=== PATIENT | female | born 1995 | race American Indian/Alaskan Native ===

== ENCOUNTER 2018-12-27 23:39 | Outpatient (CLI) | payer MEDICAID ==
[2018-12-28 01:24] VITALS: BP 119/69
== END 2018-12-28 01:38 | disposition home or self-care (01) ==
LOC: TRG 23:39
PROVIDERS: ATTEND Obstetrics & Gynecology
DX: O9A.213 Injury, poisoning and certain other consequences of external causes complicating pregnancy, third trimester (principal); O26.893 Other specified pregnancy related conditions, third trimester; R10.819 Abdominal tenderness, unspecified site; Z3A.37 37 weeks gestation of pregnancy; W19.XXXA Unspecified fall, initial encounter; Y93.89 Activity, other specified; Y92.098 Other place in other non-institutional residence as the place of occurrence of the external cause; Y99.8 Other external cause status
CPT/HCPCS: 59025

== ENCOUNTER 2019-01-16 13:56 | Inpatient (IN) | payer MEDICAID ==
[2019-01-16 17:00] LABS: Basophils # (Auto) 0.1 K/mm3 (0.0-0.1); Basophils % (Auto) 0.5 % (0.0-1.8); Eosinophils # (Auto) 0.1 K/mm3 (0.0-0.4); Eosinophils % (Auto) 0.5 % (0.0-4.3); Hemoglobin 11.4 gm/dl (10.1-14.3); Lymphocytes # (Auto) 1.6 K/mm3 (1.2-5.4); Lymphocytes % (Auto) 13.4 % (13.4-35.0); Mean Corpuscular HGB Conc 33 % (30-34); Mean Corpuscular Volume 81 fl (79-97); Monocytes # (Auto) 0.7 K/mm3 (0.0-0.8); Monocytes % (Auto) 6.1 % (0.0-7.3); Platelet Count 229 K/mm3 (140-440); Red Blood Count 4.34 M/mm3 (3.65-5.03); Red Cell Distribution Width 14.5 % (13.2-15.2)
--- NOTE | 2019-01-16 17:04 | History and Physical Report ---
History of Present Illness Date of examination: 01/16/19 Date of admission: 01/16/19 13:56 Chief complaint: IOL secondary to morbid obesity History of present illness: 23 yo, @ 40 wk gestation. Initiated care with [facility] at 7 wks gestation. Care was co-managed by [facility]. She presents to [facility] for IOL secondary to MO. She reports + FM. Denies any VB or LOF. Her has been complicated by chlamydia, with a negative JENNIFER. Labs: A+, antibody negative; Rubella immune; VDRL non-reactive; HBsAg negative; HIV negative; GC/Chlamydia negative (07/27/18); HSVII negative; Trich negative; early 1 hr gtt - 105; 28 wk 1 hr gtt - 107; GBS negative. Past History Past Medical History: other (obesity ( BMI: 51.17) Past Surgical History: no surgical history [employer] REFINISHER History: abnormal PAP smear (05/20/18: [facility]), chlamydia Family/Genetic History: diabetes Social history: single, full code. denies: smoking, alcohol abuse, prescription drug abuse, IV drug use - Obstetrical History Expected Date of Delivery: 01/16/19 Actual Gestation: 40 Week(s) 0 Day(s) : 1 Para: 0 Hx # Term Pregnancies: 0 Number of Pregnancies: 0 Spontaneous Abortions: 0 Induced : 0 Number of Living Children: 0 Medications and Allergies Allergies Allergy/AdvReac Type Severity Reaction Status Date / Time No Known Allergies Allergy Verified 12/28/18 00:51 Review of Systems All systems: negative - Vital Signs Vital signs: Vital Signs Pulse BP 90 113/61 01/16/19 14:29 01/16/19 14:29 Temp Pulse Resp BP Pulse Ox 98.9 F 90 16 113/61 01/16/19 15:49 01/16/19 15:49 01/16/19 15:49 01/16/19 15:49 - Physical Exam Breasts: Positive: deferred Cardiovascular: Regular rate Lungs: Positive: Normal air movement Abdomen: Positive: other (gravid) Genitourinary (Female): Positive: normal external genitalia, normal perenium Vagina: Positive: normal moisture Uterus: Positive: other (S>D) - Obstetrical FHR: category 1 Uterine Contraction Monitor Mode: External Cervical Dilatation: 0 Cervical Effacement Percentage: 50 station: -3 Uterine Contraction Pattern: Irregular Uterine Tone Measurement Phase: Resting Uterine Contraction Intensity: Mild Results All other labs normal. Assessment and Plan - Patient Problems (1) 40 weeks gestation of Current Visit: Yes Status: Acute Plan to address problem: Admit to L & D Cervidil x 12 hrs as tolerated Pain medications as desired Anticipate (2) Morbid obesity with BMI of 50.0-59.9, adult Current Visit: Yes Status: Acute (3) Encounter for induction of labor Current Visit: Yes Status: Acute
[2019-01-16] MEDS ORDERED: BRETHINE SUB-Q PRN (17:11)
[2019-01-16] MEDS ORDERED: BRETHINE IVP PRN (17:11)
[2019-01-16] MEDS ORDERED: CERVIDIL VG ONE (17:11)
[2019-01-16] MEDS ORDERED: XYLOCAINE 2% INFILTRATI ONE (17:11)
[2019-01-16] MEDS ORDERED: MINERAL OIL PO PRN (17:11)
[2019-01-16] MEDS ORDERED: STADOL IV PRN (17:11)
[2019-01-16] MEDS ORDERED: ZOFRAN IV PRN (17:11)
[2019-01-16] MEDS ORDERED: SUBLIMAZE IV PRN (17:11)
[2019-01-16 17:27] LABS: Hematocrit 34.9 % (30.3-42.9); Hemoglobin 11.4 gm/dl (10.1-14.3); Mean Corpuscular HGB Conc 33 % (30-34); Mean Corpuscular Volume 81 fl (79-97); Platelet Count 222 K/mm3 (140-440); Red Blood Count 4.29 M/mm3 (3.65-5.03); Red Cell Distribution Width 13.9 % (13.2-15.2)
[2019-01-16] MEDS ORDERED: PITOCin/NS 20 UNIT/1000ML DRIP 20 UNITS/1,000 ML BAG IV SCH (18:00)
[2019-01-16] MEDS: LACTATED RINGERS 1,000 ML IV SCH (18:52)
[2019-01-17] MEDS: LACTATED RINGERS 1,000 ML IV SCH (02:25)
--- NOTE | 2019-01-17 10:04 | Progress Note ---
Assessment and Plan A: IUP @ 40 1/7 Weeks Category I Tracing Morbid Maternal Obesity GBS Negative P: Repeat Cervidil x 12 hours Subjective - Subjective Date of service: 01/17/19 Patient reports: movement normal, contractions Objective - Vital Signs Vital Signs: Vital Signs - 12hr 01/16/19 01/16/19 01/17/19 23:41 23:42 03:38 Temperature 98.0 F Pulse Rate 90 90 Respiratory 16 16 Rate Blood Pressure 130/62 Blood Pressure 130/62 [Right] 01/17/19 01/17/19 01/17/19 03:42 03:45 09:19 Temperature 98.0 F Pulse Rate 82 82 81 Respiratory 15 Rate Blood Pressure 144/65 105/57 Blood Pressure 144/65 [Right] - Exam Breasts: normal Cardiovascular: Regular rate Lungs: Clear to auscultation, Normal air movement Abdomen: Present: normal appearance, soft, normal bowel sounds Uterus: Present: normal, firm, fundal height above umbilicus FHR: category 1 Uterine Contraction Monitor Mode: External Cervical Dilatation: 0 Uterine Contraction Pattern: Irregular Uterine Tone Measurement Phase: Resting Uterine Contraction Intensity: Mild Extremities: normal - Labs Labs: Abnormal Labs 01/16/19 01/16/19 16:37 Unknown WBC 11.9 H 12.1 H MCH 26 L 27 L Seg Neutrophils % 79.5 H Seg Neutrophils # 9.5 H Laboratory Results - last 24 hr 01/16/19 01/16/19 01/16/19 16:37 16:37 Unknown WBC 11.9 H 12.1 H RBC 4.34 4.29 Hgb 11.4 11.4 Hct 35.0 34.9 MCV 81 81 MCH 26 L 27 L MCHC 33 33 RDW 14.5 13.9 Plt Count 229 222 Lymph % (Auto) 13.4 [place] % (Auto) 6.1 Eos % (Auto) 0.5 Baso % (Auto) 0.5 Lymph # 1.6 [place] # 0.7 Eos # 0.1 Baso # 0.1 Seg Neutrophils % 79.5 H Seg Neutrophils # 9.5 H Blood Type A POSITIVE Antibody Screen Negative
[2019-01-17] MEDS ORDERED: CERVIDIL VG PRN (10:30)
[2019-01-17] MEDS ORDERED: CERVIDIL VG ONE (11:08)
[2019-01-17] MEDS ORDERED: NORCO 5/325 PO PRN (14:03)
[2019-01-17] MEDS ORDERED: MILK OF MAGNESIA PO PRN (14:03)
[2019-01-17] MEDS ORDERED: BENADRYL PO PRN (14:03)
[2019-01-17] MEDS ORDERED: MINERAL OIL PO PRN (14:30)
[2019-01-17] MEDS ORDERED: PITOCin/NS 20 UNIT/1000ML DRIP 20 UNITS/1,000 ML BAG IV SCH (15:00)
[2019-01-17] MEDS ORDERED: IBUPROFEN PO SCH (15:00)
[2019-01-17] MEDS ORDERED: SODIUM CHLORIDE FLUSH SYRINGE 10 ML IV NR (15:00)
[2019-01-17] MEDS: PITOCin/NS 30 UNIT/500ML 30 UNITS/500 ML BAG IV SCH (23:56)
--- NOTE | 2019-01-17 23:57 | Progress Note ---
Assessment and Plan A: IUP @ 40 1/7 Weeks Category I Tracing Morbid Maternal Obesity GBS Negative P: Remove Cervidil Cook's Cervical Ripening Balloon Placed Low-Dose Pitocin Subjective - Subjective Date of service: 01/17/19 Patient reports: movement normal, contractions Objective - Vital Signs Vital Signs: Vital Signs - 12hr 01/17/19 16:22 Temperature 98.2 F Pulse Rate 84 Respiratory 16 Rate Blood Pressure 117/57 Blood Pressure 117/57 [Right] - Exam Breasts: normal Cardiovascular: Regular rate Lungs: Clear to auscultation Abdomen: Present: normal appearance, soft Uterus: Present: normal, firm, fundal height above umbilicus FHR: category 1 Uterine Contraction Monitor Mode: External Cervical Dilatation: 1 (intact, Vtx) Cervical Effacement Percentage: 30 station: 3 Uterine Contraction Pattern: Irregular Uterine Tone Measurement Phase: Resting Uterine Contraction Intensity: Mild Extremities: normal - Labs Labs: Abnormal Labs 01/16/19 01/16/19 16:37 Unknown WBC 11.9 H 12.1 H MCH 26 L 27 L Seg Neutrophils % 79.5 H Seg Neutrophils # 9.5 H Laboratory Results - last 24 hr 01/16/19 16:37 RPR Nonreactive
[2019-01-18] MEDS ORDERED: XYLOCAINE 2% INFILTRATI ONE (03:15)
[2019-01-18] MEDS ORDERED: XYLOCAINE MPF 2% ONE (03:15)
[2019-01-18] MEDS ORDERED: NARCAN 2 MG/2 ML IV PRN (03:55)
--- NOTE | 2019-01-18 03:55 | Anesthesia Consultation ---
Anesthesia Consult and Med Hx Date of service: 01/18/19 - Airway Anesthetic Teeth Evaluation: Good ROM Head & Neck: Adequate Mental/Hyoid Distance: Adequate Mallampati Class: Class II Intubation Access Assessment: Probably Good - Pulmonary Exam CTA: Yes - Cardiac Exam Cardiac Exam: RRR - Pre-Operative Health Status ASA Pre-Surgery Classification: ASA3 Proposed Anesthetic Plan: Epidural - Pulmonary Hx Asthma: No COPD: No Hx Pneumonia: No - Cardiovascular System Hx Hypertension: No - Central Nervous System Hx Seizures: No Hx Psychiatric Problems: No - Endocrine Hx Renal Disease: No Hx End Stage Renal Disease: No Hx Hypothyroidism: No Hx Hyperthyroidism: No - Hematic Hx Anemia: No Hx Sickle Cell Disease: No - Other Systems Hx Alcohol Use: No Hx Obesity: Yes
[2019-01-18] MEDS: fentaNYL-BUPIV 2 MCG/ML-0.125% 200 MCG/100 ML BAG EPIDURAL SCH ×2 (09:07→17:21)
[2019-01-18] MEDS ORDERED: PRENATAL VITAMIN PO SCH (10:00)
--- NOTE | 2019-01-18 10:31 | Progress Note ---
Assessment and Plan A: Term IUP 40w 2d Morbid obesity Category 1 tracing Day #2 induction Pitocin 22mu Comfortable with epidural AROM 01/18/10 @09:42; copious amt clear fluid IUPC inserted in gentle fashion; Pt tolerated well P: Routine labor orders Continue pitocin Augmentation Desired MVUs 275-300 Anticipate Subjective - Subjective Date of service: 01/18/19 (09:42) Principal diagnosis: Term IUP, IOL, Morbid obesity Patient reports: movement normal, contractions, no loss of fluid, no vaginal bleeding Objective - Vital Signs Vital Signs: Vital Signs - 12hr 01/17/19 01/18/19 01/18/19 23:55 00:44 01:16 Pulse Rate 76 75 Respiratory 20 Rate Blood Pressure 159/91 148/78 O2 Sat by Pulse Oximetry 01/18/19 01/18/19 01/18/19 01:44 03:24 03:45 Pulse Rate 74 100 H 77 Respiratory Rate Blood Pressure 142/73 106/52 112/54 O2 Sat by Pulse Oximetry 01/18/19 01/18/19 01/18/19 04:15 04:43 05:14 Pulse Rate 81 75 84 Respiratory Rate Blood Pressure 119/53 125/60 112/55 O2 Sat by Pulse Oximetry 01/18/19 01/18/19 01/18/19 05:44 06:14 06:45 Pulse Rate 83 81 74 Respiratory Rate Blood Pressure 134/64 117/58 136/57 O2 Sat by Pulse Oximetry 01/18/19 01/18/19 01/18/19 07:14 07:29 07:34 Pulse Rate 85 92 H 86 Respiratory Rate Blood Pressure 134/59 O2 Sat by Pulse 100 100 Oximetry 01/18/19 01/18/19 01/18/19 07:39 07:44 07:47 Pulse Rate 85 94 H 88 Respiratory Rate Blood Pressure 122/63 118/58 O2 Sat by Pulse 98 98 Oximetry 01/18/19 01/18/19 01/18/19 07:49 07:50 07:53 Pulse Rate 96 H 100 H 107 H Respiratory Rate Blood Pressure 126/58 126/57 O2 Sat by Pulse 100 Oximetry 01/18/19 01/18/19 01/18/19 07:54 07:56 07:59 Pulse Rate 98 H 103 H 108 H Respiratory Rate Blood Pressure 119/57 123/58 O2 Sat by Pulse 98 99 Oximetry 01/18/19 01/18/19 01/18/19 08:02 08:04 08:05 Pulse Rate 94 H 101 H 103 H Respiratory Rate Blood Pressure 134/58 133/64 O2 Sat by Pulse 98 Oximetry 01/18/19 01/18/19 01/18/19 08:08 08:09 08:11 Pulse Rate 108 H 104 H 100 H Respiratory Rate Blood Pressure 127/57 128/58 O2 Sat by Pulse 98 Oximetry 01/18/19 01/18/19 01/18/19 08:14 08:19 08:24 Pulse Rate 90 79 92 H Respiratory Rate Blood Pressure 111/56 O2 Sat by Pulse 99 98 99 Oximetry 01/18/19 01/18/19 01/18/19 08:29 08:34 08:39 Pulse Rate 90 83 89 Respiratory Rate Blood Pressure O2 Sat by Pulse 100 99 99 Oximetry 01/18/19 01/18/19 01/18/19 08:44 08:46 08:49 Pulse Rate 95 H 88 102 H Respiratory Rate Blood Pressure 119/71 O2 Sat by Pulse 98 100 Oximetry 01/18/19 01/18/19 01/18/19 08:54 08:59 09:04 Pulse Rate 97 H 74 77 Respiratory Rate Blood Pressure O2 Sat by Pulse 100 100 100 Oximetry 01/18/19 01/18/19 01/18/19 09:09 09:14 09:15 Pulse Rate 78 87 101 H Respiratory Rate Blood Pressure O2 Sat by Pulse 100 100 92 Oximetry 01/18/19 01/18/19 01/18/19 09:16 09:19 09:24 Pulse Rate 90 70 76 Respiratory Rate Blood Pressure 126/70 O2 Sat by Pulse 100 100 Oximetry 01/18/19 01/18/19 01/18/19 09:29 09:34 09:39 Pulse Rate 83 89 77 Respiratory Rate Blood Pressure O2 Sat by Pulse 98 95 100 Oximetry 01/18/19 01/18/19 01/18/19 09:44 09:45 09:49 Pulse Rate 83 85 97 H Respiratory Rate Blood Pressure 130/69 O2 Sat by Pulse 100 100 Oximetry 01/18/19 01/18/19 01/18/19 09:54 09:59 10:04 Pulse Rate 90 73 82 Respiratory Rate Blood Pressure O2 Sat by Pulse 100 100 100 Oximetry 01/18/19 01/18/19 01/18/19 10:09 10:14 10:17 Pulse Rate 79 77 80 Respiratory Rate Blood Pressure 103/55 O2 Sat by Pulse 100 100 Oximetry 01/18/19 10:19 Pulse Rate 86 Respiratory Rate Blood Pressure O2 Sat by Pulse 99 Oximetry - Exam Breasts: normal Cardiovascular: Regular rate, Normal S1, Normal S2, No murmurs Lungs: Clear to auscultation, Normal air movement Abdomen: Present: normal appearance, soft, normal bowel sounds, other (gravid) Vulva: both: normal Uterus: Present: other (gravid) FHR: category 1 Uterine Contraction Monitor Mode: External Cervical Dilatation: 6 (Vertex. AROM, Copious amt clear fluid, IUPC inserted in gentle fashion. Pt tolerated well. ) Cervical Effacement Percentage: 75 station: -2 Uterine Contraction Pattern: Regular Uterine Tone Measurement Phase: Resting Uterine Contraction Intensity: Moderate Extremities: normal, edema (+1) Deep Tendon Reflex Grade: Normal +2 - Labs Labs: Abnormal Labs 01/16/19 01/16/19 16:37 Unknown WBC 11.9 H 12.1 H MCH 26 L 27 L Seg Neutrophils % 79.5 H Seg Neutrophils # 9.5 H Laboratory Results - last 24 hr 01/16/19 16:37 RPR Nonreactive
[2019-01-18] MEDS: LACTATED RINGERS 1,000 ML IV SCH ×2 (10:55→13:36)
[2019-01-18] MEDS: PITOCin/NS 30 UNIT/500ML 30 UNITS/500 ML BAG IV SCH (14:49)
[2019-01-18] MEDS ORDERED: ZOFRAN IV PRN (19:21)
[2019-01-18] MEDS ORDERED: LANSINOH TP PRN (19:21)
[2019-01-18] MEDS ORDERED: TUCKS PAD TP PRN (19:21)
[2019-01-18] MEDS ORDERED: BENADRYL PO PRN (19:21)
[2019-01-18] MEDS ORDERED: MILK OF MAGNESIA PO PRN (19:21)
[2019-01-18] MEDS ORDERED: PHENERGAN PO PRN (19:21)
[2019-01-18] MEDS ORDERED: TYLENOL PO PRN (19:21)
[2019-01-18] MEDS ORDERED: DULCOLAX PR PRN (19:21)
--- NOTE | 2019-01-18 19:30 | Procedure Note ---
OB Delivery Note - Delivery Date of Delivery: 01/18/19 (19:03) Surgeon: THIAGO GEORGES (FABIO) Estimated blood loss: 100cc - Vaginal Delivery presentation: vertex Delivery position: OA Intrapartum events: mult.variable deceleratio Delivery induction: other (3 day IOL. Cervidil, cooks balloon, Pitocin) Delivery augmentation: rupture of membranes Delivery monitor: external FHT, external uterine, internal uterine Route of delivery: (19:03) Delivery placenta: spontaneous (19:09) Delivery cord: 3 umbilical vessels Episiotomy: none Delivery laceration: other (Right periurethral, approximates well. No repair) Anesthesia: epidural Delivery comments: viable male infant, JORGE L position at 19:03. Vigorous infant placed skin-to-s kin on mothers abdomen. Delayed cord clamping, then cut by FOB with my guidance. Spontaneous jimenez delivery of intact placenta. 3VC at 19:09. FF@U-2. Bleeding small. Small right periurethral laceration. well approximated. Left unrepaired. EBL 100CC. and baby left in stable condition in L&D. - Infant A at 1 minute: 8 at 5 minutes: 9 Infant Gender: Male (7lbs 2oz, 3245 grams, 19.5")
[2019-01-18] MEDS ORDERED: SODIUM CHLORIDE FLUSH SYRINGE 10 ML IV SCH (20:00)
[2019-01-18] MEDS: NORCO 5/325 PO PRN (23:00)
[2019-01-19] MEDS: IBUPROFEN PO SCH ×4 (06:24→23:10)
[2019-01-19 08:05] LABS: Hematocrit 31.4 % (30.3-42.9); Hemoglobin 10.1 gm/dl (10.1-14.3)
--- NOTE | 2019-01-19 09:45 | Progress Note ---
Assessment and Plan - Patient Problems (1) Morbid obesity with BMI of 50.0-59.9, adult Current Visit: Yes Status: Acute (2) (normal spontaneous vaginal delivery) Current Visit: Yes Status: Acute Plan to address problem: Continue routine PP orders Anticipate d/c home in 24 hours F/U with office in 6 wks for routine PP visit (3) Anemia Current Visit: Yes Status: Acute Qualifiers: Anemia type: other cause Other causes of anemia: acute posthemorrhagic Qualified Code(s): D62 - Acute posthemorrhagic anemia Plan to address problem: Asymptomatic Ferrous sulfate 325 mg po BID Increase iron rich foods into diet Subjective - Subjective Date of service: 01/19/19 Principal diagnosis: S/P , Anemia, Morbid obesity Interval history: 23 yo, @ 40 wk gestation. Initiated care with [facility] at 7 wks gestation. Care was co-managed by [facility]. She presents to [facility] for IOL secondary to MO. She reports + FM. Denies any VB or LOF. Her has been complicated by chlamydia, with a negative JENNIFER. Labs: A+, antibody negative; Rubella immune; VDRL non-reactive; HBsAg negative; HIV negative; GC/Chlamydia negative (07/27/18); HSVII negative; Trich negative; early 1 hr gtt - 105; 28 wk 1 hr gtt - 107; GBS negative. Patient reports: appetite normal, voiding normally, pain well controlled, flatus, ambulating normally Winter: doing well () Objective - Vital Signs Latest vital signs: Vital Signs Temp Pulse Resp BP BP Pulse Ox 01/19/19 04:30 98.7 F 80 19 121/70 01/19/19 00:00 98.4 F 77 16 130/90 01/18/19 19:15 108 H 167/101 01/18/19 19:09 82 118/71 01/18/19 18:52 101 H 100 01/18/19 18:47 121 H 100 01/18/19 18:45 100 H 134/73 01/18/19 18:42 111 H 100 01/18/19 18:37 105 H 100 01/18/19 18:32 107 H 100 01/18/19 18:27 84 100 01/18/19 18:22 79 100 01/18/19 18:17 83 100 01/18/19 18:16 83 133/79 01/18/19 18:12 86 100 01/18/19 18:07 94 H 100 01/18/19 18:02 98 H 100 01/18/19 17:57 94 H 100 01/18/19 17:52 99 H 100 01/18/19 17:50 100 H 137/62 01/18/19 17:47 80 94 01/18/19 17:42 100 H 100 01/18/19 17:37 98 H 100 01/18/19 17:32 86 100 01/18/19 17:27 96 H 100 01/18/19 17:26 98 H 89 01/18/19 17:22 95 H 100 01/18/19 17:17 88 100 01/18/19 17:15 95 H 133/94 01/18/19 17:12 95 H 77 L 01/18/19 17:07 89 100 01/18/19 17:02 92 H 100 01/18/19 16:57 93 H 100 01/18/19 16:56 98.8 F 102 H 16 139/64 139/64 100 01/18/19 16:52 90 100 01/18/19 16:47 96 H 133/59 84 01/18/19 16:15 98 H 129/66 01/18/19 15:46 87 126/65 01/18/19 15:15 100 H 125/67 01/18/19 15:04 113 H 76 L 01/18/19 15:03 107 H 100 01/18/19 14:58 98.8 F 108 H 16 129/66 129/66 100 01/18/19 14:45 113 H 126/67 01/18/19 14:15 95 H 99/56 01/18/19 13:45 86 112/61 01/18/19 13:35 92 H 100 01/18/19 13:30 83 100 01/18/19 13:25 80 100 01/18/19 13:20 77 100 01/18/19 13:15 91 H 114/57 100 01/18/19 13:10 89 100 01/18/19 13:05 76 100 01/18/19 13:00 77 100 01/18/19 12:55 72 100 01/18/19 12:50 84 100 01/18/19 12:46 86 108/55 09/19 12:45 91 H 100 01/18/19 12:39 84 100 01/18/19 12:34 79 100 01/18/19 12:29 74 100 01/18/19 12:24 83 100 01/18/19 12:19 73 100 01/18/19 12:16 73 108/58 01/18/19 12:14 83 100 01/18/19 12:09 77 100 01/18/19 12:04 115 H 100 01/18/19 12:00 98.2 F 93 H 20 107/53 107/53 100 01/18/19 11:59 90 100 01/18/19 11:54 95 H 100 01/18/19 11:49 90 99 01/18/19 11:45 130 H 133/60 01/18/19 11:44 130 H 100 01/18/19 11:39 77 100 01/18/19 11:34 74 99 01/18/19 11:29 117 H 100 01/18/19 11:24 114 H 99 01/18/19 11:19 80 100 01/18/19 11:15 80 107/58 01/18/19 11:14 78 100 01/18/19 11:09 78 100 01/18/19 11:04 80 100 01/18/19 10:59 83 100 01/18/19 10:56 97.8 F 01/18/19 10:54 87 100 01/18/19 10:49 88 100 01/18/19 10:46 86 115/58 01/18/19 10:44 86 100 01/18/19 10:39 82 100 01/18/19 10:34 77 100 01/18/19 10:29 77 99 01/18/19 10:24 79 99 01/18/19 10:19 86 99 01/18/19 10:17 80 103/55 01/18/19 10:14 77 100 01/18/19 10:09 79 100 01/18/19 10:04 82 100 01/18/19 09:59 73 100 01/18/19 09:54 90 100 01/18/19 09:49 97 H 100 01/18/19 09:45 85 130/69 01/18/19 09:44 83 100 Intake and Output 01/18/19 01/19/19 01/19/19 23:59 07:59 15:59 Intake Total 27.933 300 Output Total 1000 650 Balance -972.067 -350 Intake: IV 27.933 PITOCin/NS 30 UNIT/500ML 27.933 30 units In 500 ml @ 1 MILLIUNITS/MIN 1 mls/hr IV TITR PEDRO LUIS Rx#:[id number] Intake, Free Water 300 Output: Urine 1000 650 Indwelling Catheter 300 Void 700 650 Other: Total, Output Amount 700 650 # Voids Void 1 1 Estimated Blood Loss 150 - Exam Breasts: Present: normal Cardiovascular: Present: Regular rate Lungs: Present: Normal air movement Abdomen: Present: soft, normal bowel sounds Uterus: Present: firm, fundal height below umbilicus (U-2) Extremities: Present: normal Deep Tendon Reflex Grade: Normal +2 Incision: Present: other (First degree Rt periurethral laceration, healing as expected)
--- NOTE | 2019-01-19 09:50 | Discharge Summary ---
Providers - Providers Date of Admission: 01/16/19 13:56 Date of discharge: 01/20/19 (1200) Attending physician: YAN VALLADARES MD Primary care physician: YAN VALLADARES MD Hospitalization Reason for admission: induction of labor (secondary to morbid obesity), IUP at term Delivery: Episiotomy: none Laceration: other (Rt periurethral, healing as expected) Other procedures: none complications: none Discharge diagnosis: IUP at term delivered, other (Anemia) baby: male Hospital course: See admission H & P; OB delivery summary and PP progress notes Condition at discharge: Good Disposition: DC-01 TO HOME OR SELFCARE - Discharge Diagnoses (1) Morbid obesity with BMI of 50.0-59.9, adult Status: Acute (2) (normal spontaneous vaginal delivery) Status: Acute (3) Anemia Status: Acute Qualifiers: Anemia type: other cause Other causes of anemia: acute posthemorrhagic Qualified Code(s): D62 - Acute posthemorrhagic anemia Plan - Discharge Medications Prescriptions: Ferrous Sulfate [Ferrous Sulfate 324 MG] 324 mg PO BID 30 Days #60 tablet.dr - Provider Discharge Summary Activity: routine, no sex for 6 weeks, no heavy lifting 4 weeks, no strenuous exercise Diet: other (Iron rich diet) Instructions: routine Additional instructions: [] Smoking cessation referral if applicable(refer to patient education folder for contact #) [] Refer to [facility]'s [facility] Booklet Call your doctor immediately for: * Fever > 100.5 * Heavy vaginal bleeding ( >1 pad per hour) * Severe persistent headache * Shortness of breath * Reddened, hot, painful area to leg or breast * Drainage or odor from incision. * Continue oral daily iron supplementation as directed * Keep incision dry and clean - Follow up plan Follow up: YAN VALLADARES MD [Primary Care Provider] - 6 Weeks
[2019-01-19] MEDS: FEOSOL PO SCH ×2 (10:20→23:10)
[2019-01-19] MEDS: NORCO 5/325 PO PRN (15:25)
[2019-01-20] MEDS: IBUPROFEN PO SCH ×2 (05:01→11:38)
[2019-01-20] MEDS: FEOSOL PO SCH (11:39)
[2019-01-20 13:00] VITALS: BP 129/55
== END 2019-01-20 13:15 | disposition home or self-care (01) | DRG 775 ==
LOC: LD 13:56 → OB 01-18 21:53
PROVIDERS: ADMIT Obstetrics & Gynecology; ATTEND Obstetrics & Gynecology
PROC: 10E0XZZ Delivery of Products of Conception, External Approach (ICD-10-PCS; principal; 2019-01-18)
PROC: 3E0P7VZ Introduction of Hormone into Female Reproductive, Via Natural or Artificial Opening (ICD-10-PCS; 2019-01-18)
PROC: 3E0R3BZ Introduction of Anesthetic Agent into Spinal Canal, Percutaneous Approach (ICD-10-PCS; 2019-01-18)
PROC: 00HU33Z Insertion of Infusion Device into Spinal Canal, Percutaneous Approach (ICD-10-PCS; 2019-01-18)
PROC: 10907ZC Drainage of Amniotic Fluid, Therapeutic from Products of Conception, Via Natural or Artificial Opening (ICD-10-PCS; 2019-01-18)
PROC: 10H07YZ Insertion of Other Device into Products of Conception, Via Natural or Artificial Opening (ICD-10-PCS; 2019-01-18)
DX: O76 Abnormality in fetal heart rate and rhythm complicating labor and delivery (principal); O99.214 Obesity complicating childbirth; E66.01 Morbid (severe) obesity due to excess calories; O71.82 Other specified trauma to perineum and vulva; O99.02 Anemia complicating childbirth; D62 Acute posthemorrhagic anemia; Z3A.40 40 weeks gestation of pregnancy; Z37.0 Single live birth; Z83.3 Family history of diabetes mellitus
CPT/HCPCS: 36415; 59200; 85014; 85018; 85025; 85027; 86592; 86850; 86900; 86901; 96374; G0378; J0595; J2590; J3010; J7120

== ENCOUNTER 2020-09-14 21:15 | Outpatient (CLI) | payer MEDICAID ==
[2020-09-14 21:42] VITALS: BP 127/69
== END 2020-09-14 23:02 | disposition home or self-care (01) ==
LOC: TRG 21:15 → APU 21:24 → TRG 23:02
DX: Z34.92 Encounter for supervision of normal pregnancy, unspecified, second trimester (principal); R10.9 Unspecified abdominal pain; Z3A.25 25 weeks gestation of pregnancy
CPT/HCPCS: 59025

== ENCOUNTER 2020-10-18 14:29 | Outpatient (CLI) | payer MEDICAID ==
[2020-10-18 15:39] VITALS: BP 134/62
[2020-10-18] MEDS ORDERED: LACTATED RINGERS 500 ML IV ONE (15:43)
--- NOTE | 2020-10-18 16:33 | Ultrasound Report ---
US OB LIMITED, US OB BPP WO NON-STRESS INDICATION / CLINICAL INFORMATION: fall. COMPARISON: None available. FINDINGS: breathing movement = 2 Gross body movement = 2 tone = 2 Qualitative amniotic fluid volume = 2 Total biophysical score = 8/8 Amniotic fluid index is 18.5 cm. Presentation is Breech. heart rate is 147 beats per minute. IMPRESSION: biophysical profile = 12/21 Amniotic fluid index is 18.5 cm. Signer Name: Rebel Melgoza MD Signed: 10/18/2020 4:28 PM Workstation Name: [id number]
== END 2020-10-18 21:50 | disposition home or self-care (01) ==
LOC: TRG 14:29 → APU 14:31 → TRG 21:50
PROVIDERS: ATTEND Obstetrics & Gynecology
DX: O32.1XX0 Maternal care for breech presentation, not applicable or unspecified (principal); Z3A.31 31 weeks gestation of pregnancy
CPT/HCPCS: 59025; 76815; 76819

== ENCOUNTER 2020-10-18 16:13 | Emergency (ER) | payer MEDICAID ==
[2020-10-18 17:15] VITALS: BP 123/69
--- NOTE | 2020-10-18 18:42 | Emergency Department Report ---
ED General Adult HPI - General Chief complaint: Extremity Injury, Lower Stated complaint: ankle pain Time Seen by Provider: 10/18/20 18:35 Source: patient Mode of arrival: Wheelchair Limitations: No Limitations - History of Present Illness Initial comments: 25-year-old female patient (30 weeks gestation) presents to the emergency department complaints of right ankle pain starting today. Patient states she was rushing to ensure her child stayed away from traffic when she accidentally twisted her right ankle. Patient has been unable to bear weight since the injury. No history of prior injuries to the right foot/right ankle. Denies hip pain, knee pain, paresthesias, numbness, abdominal pain, pelvic pain, vaginal bleeding, loss of vaginal fluid. Denies all other complaints at this time. Severity scale (0 -10): 8 - Related Data Home Medications Medication Instructions Recorded Confirmed Last Taken Vitamin 1 tab PO DAILY 01/17/19 01/17/19 01/16/19 08:00 Previous Rx's Medication Instructions Recorded Last Taken Type Ferrous Sulfate [Ferrous Sulfate 324 mg PO BID 30 Days #60 tablet. 01/19/19 Unknown Rx 324 MG] Allergies Allergy/AdvReac Type Severity Reaction Status Date / Time No Known Allergies Allergy Verified 09/14/20 22:06 ED Review of Systems ROS: Stated complaint: ABD PAINS Other details as noted in HPI Other: CARDIOVASCULAR: Negative for chest pain. PULMONARY: Negative for dyspnea. GASTROINTESTINAL: Negative for abdominal pain. MUSCULOSKELETAL: Positive for ankle pain. NEUROLOGICAL: Negative for headache. INTEGUMENTARY: Negative for ecchymosis. ED Past Medical Hx - Past Medical History Previous Medical History?: Yes Hx Hypertension: No Hx Congestive Heart Failure: No Hx Diabetes: No Hx Deep Vein Thrombosis: No Hx Renal Disease: No Hx Sickle Cell Disease: No Hx Seizures: No Hx Asthma: No Hx COPD: No Hx HIV: No - Surgical History Past Surgical History?: No - Social History Smoking Status: Never Smoker - Medications Home Medications: Home Medications Medication Instructions Recorded Confirmed Last Taken Type Vitamin 1 tab PO DAILY 01/17/19 01/17/19 01/16/19 08:00 History Ferrous Sulfate [Ferrous Sulfate 324 mg PO BID 30 Days #60 tablet. 01/19/19 Unknown Rx 324 MG] ED Physical Exam - General Limitations: No Limitations - Other Other exam information: General: Awake, appropriately interactive, no acute distress. Neck: Supple. Full range of motion intact. Cardiovascular: Normal peripheral perfusion. Pulmonary: No respiratory distress. Patient is speaking normally without use of accessory muscles. Skin: No apparent rashes or lesions. Neurological: No facial asymmetry. Speech is clear. Follows commands. Patient is alert and oriented. Musculoskeletal: Tenderness to palpation along the right lateral malleolus and base of the right fifth metatarsal with minimal soft tissue swelling. No obvious deformity or dislocation. No plantar ecchymosis. Dunham test is negative. Distal neurovascular and motor/sensory function intact. Psych: Cooperative. Appropriate mood and affect. ED Course Vital Signs 10/18/20 17:13 Temperature 98.2 F Pulse Rate 66 Respiratory 18 Rate Blood Pressure 123/69 [Right] O2 Sat by Pulse 98 Oximetry ED Medical Decision Making - Medical Decision Making Differential diagnosis including but not limited to: sprain, strain, fracture, contusion, dislocation, Achilles tendon injury Patient is ; verbal and written consent was obtained from the patient prior to obtaining x-rays. Risks and benefits discussed. Abdomen was shielded while obtaining x-rays. On reevaluation, patient remains stable. Repeat neurovascular exam remains intact. X-rays without acute process. History and exam findings suggestive of strain/sprain; no clinical indication for further diagnostic work-up at this time. Patient be discharged home with crutches and referral to primary care provider for close outpatient follow-up. NSAIDs withheld due to third trimester . Patient expressed understanding and is agreeable to plan of care. RICE precautions discussed. Strict return precautions provided. Repeat exam is unremarkable and benign. History, exam, diagnostic testing, and current condition do not suggest worrisome pathology to warrant further testing, continued ED treatment, admission, or surgical evaluation at this point. Given the low probability of a significant medical illness, it would be more likely to result in harm than benefit to perform further testing at this stage. Discussed findings, presumptive diagnosis, need for follow-up and specific signs/symptoms that should prompt immediate return to the emergency department. Instructions were explained in detail to the patient in addition to giving written discharge information. Patient expressed understanding and was given the opportunity to ask questions, all of which were satisfactorily answered prior to discharge home. Critical care attestation.: If time is entered above; I have spent that time in minutes in the direct care of this critically ill patient, excluding procedure time. ED Disposition Clinical Impression: Right ankle sprain Qualifiers: Encounter type: initial encounter Involved ligament of ankle: unspecified ligament Qualified Code(s): S93.401A - Sprain of unspecified ligament of right ankle, initial encounter Right foot sprain Qualifiers: Encounter type: initial encounter Qualified Code(s): S93.601A - Unspecified sprain of right foot, initial encounter Disposition: TO HOME OR SELFCARE Is pt being admited?: No Does the pt Need Aspirin: No Condition: Stable Instructions: Ankle Sprain, Foot Sprain Additional Instructions: Take Tylenol 1000 mg every 4 hours as needed for pain. Avoid NSAIDs during . Wear Rosalio wrap as directed. Use crutches as needed. Gradually advance physical activity slowly as tolerated. Keep right ankle elevated as often as possible to reduce swelling. Apply ice to the affected area as needed to reduce swelling. Follow-up with primary care provider next week. Call Tuesday to schedule an appointment. See referral information below. Return to the emergency department immediately for new or worsening symptoms. Referrals: [facility] [Provider Group] - 3-5 Days [facility] [Outside] - 3-5 Days [facility] [Outside] - 3-[address] [facility] [Outside] - 3-5 Days Forms: Work/School Release Form(ED) Time of Disposition: 20:29
--- NOTE | 2020-10-18 20:20 | XRay Report ---
RIGHT ANKLE 3 VIEWS RIGHT FOOT 3 VIEWS INDICATION: ground level fall. COMPARISON: No relevant prior imaging study available. FINDINGS: Right ankle: No acute fracture or dislocation. No significant degenerative changes. Right foot: No acute fracture or dislocation. No foreign bodies. No significant degenerative changes. IMPRESSION: 1. No acute findings. Signer Name: Rebel Melgoza MD Signed: 10/18/2020 8:16 PM Workstation Name: [id number]
== END 2020-10-18 21:00 | disposition home or self-care (01) ==
LOC: ED 16:13
DX: O9A.213 Injury, poisoning and certain other consequences of external causes complicating pregnancy, third trimester (principal); S93.491A Sprain of other ligament of right ankle, initial encounter; S93.691A Other sprain of right foot, initial encounter; X50.1XXA Overexertion from prolonged static or awkward postures, initial encounter; Z79.899 Other long term (current) drug therapy; Y93.89 Activity, other specified; Y92.89 Other specified places as the place of occurrence of the external cause; Y99.8 Other external cause status
CPT/HCPCS: 59025; 76815; 76819

== ENCOUNTER 2020-12-12 00:27 | Outpatient (CLI) | payer MEDICAID ==
[2020-12-12 01:18] VITALS: BP 124/60
== END 2020-12-12 02:39 | disposition home or self-care (01) ==
LOC: TRG 00:27 → APU 00:38 → TRG 02:39
PROVIDERS: ATTEND Obstetrics & Gynecology
DX: Z34.93 Encounter for supervision of normal pregnancy, unspecified, third trimester (principal); Z3A.38 38 weeks gestation of pregnancy
CPT/HCPCS: 36415; 84112

== ENCOUNTER 2020-12-14 17:02 | Inpatient (IN) | payer MEDICAID ==
--- NOTE | 2020-12-14 18:06 | History and Physical Report ---
History of Present Illness Date of examination: 12/14/20 Date of admission: 12/14/20 Chief complaint: Contractions. History of present illness: 25 year old presents to L&D with complaint of contractions. Patient received care at [facility] and records are now available. LMP 03/21/2020. EDC 12/26/2020 (confirmed by 10 week US). significant for the following: obesity (BMI 52.1), vitamin D deficiency (supplemented). labs are as follows: A+, antibody screen negative, rubella immune, hepatitis B surface antigen negative, HIV negative, RPR nonreactive, gonorrhea negative, chlamydia negative, trichomonas negative, HSV 2 negative, AFP negative, 1 hour sugar test 168 (normal 3 hour OGTT x2), GBS positive. Past History Past Medical History: other (obesity, history of abnormal pap smear) Past Surgical History: no surgical history [facility] History: abnormal PAP smear. denies: chlamydia, gonorrhea, hepatitis B, hepatitis C, herpes, HIV, syphilis, trichomonas Family/Genetic History: none Social history: lives with family, full code. denies: smoking, alcohol abuse, prescription drug abuse, IV drug use - Obstetrical History Expected Date of Delivery: 12/26/20 Actual Gestation: 38 Week(s) 2 Day(s) : 2 Para: 1 Hx # Term Pregnancies: 1 Number of Pregnancies: 0 Spontaneous Abortions: 0 Induced : 0 Number of Living Children: 1 Medications and Allergies Allergies Allergy/AdvReac Type Severity Reaction Status Date / Time No Known Allergies Allergy Verified 09/14/20 22:06 Home Medications Medication Instructions Recorded Confirmed Last Taken Type Vitamin 1 tab PO DAILY 01/17/19 01/17/19 01/16/19 08:00 History Ferrous Sulfate [Ferrous Sulfate 324 mg PO BID 30 Days #60 tablet. 01/19/19 Unknown Rx 324 MG] Active Meds: Active Medications Acetaminophen (Acetaminophen 325 Mg Tab) 650 mg PO Q4H PRN PRN Reason: Pain, Mild (1-3) Butorphanol Tartrate (Butorphanol 2 Mg/1 Ml Inj) 1 mg IV Q2H PRN PRN Reason: Pain, Moderate(4-6) LABOR PAIN Carboprost Tromethamine (Carboprost Tromethamine 250 Mcg/1 Ml Inj) 250 mcg IM ONCE PRN PRN Reason: Uterine Bleeding Ephedrine Sulfate (Ephedrine Sulfate 50 Mg/1 Ml Inj) 10 mg IV Q2M PRN PRN Reason: Hypotension Fentanyl (Fentanyl 100 Mcg/2 Ml Inj) 100 mcg IV Q2H PRN PRN Reason: Pain,Severe (7-10) LABOR PAIN Oxytocin/Sodium Chloride (Pitocin/Ns 30 Unit/500ml) 30 units in 500 mls @ 2 mls/hr IV TITR PEDRO LUIS; Protocol Lactated Ringer's (Lactated Ringers) 1,000 mls @ 125 mls/hr IV DIRECT PEDRO LUIS Oxytocin/Sodium Chloride (Pitocin/Ns 30 Unit/500ml) 30 units in 500 mls @ 40 mls/hr IV TITR PEDRO LUIS; Protocol Ampicillin Sodium (Ampicillin/Ns 2 Gm/100 Ml) 2 gm in 100 mls @ 100 mls/hr IV ONCE ONE; Protocol Stop: 12/14/20 18:53 Ampicillin Sodium (Ampicillin/Ns 1 Gm/50 Ml) 1 gm in 50 mls @ 100 mls/hr IV Q4H PEDRO LUIS; Protocol Lidocaine (Lidocaine (2%) 20 Mg/1 Ml Vial 20 Ml Mdv) 20 ml INFILTRATI ONCE ONE Stop: 12/14/20 17:55 Loperamide HCl (Loperamide 2 Mg Cap) 2 mg PO ONCE PRN PRN Reason: give with Hemabate Methylergonovine Maleate (Methylergonovine Maleate 0.2 Mg/Ml Vial) 0.2 mg IM ONCE PRN PRN Reason: Uterine Bleeding Misoprostol (Misoprostol 200 Mcg Tab) 800 mcg SD ONCE PRN PRN Reason: Uterine Bleeding Oxytocin (Oxytocin 10 Unit/1 Ml Inj) 10 unit IM ONCE PRN PRN Reason: Uterine Bleeding Terbutaline Sulfate (Terbutaline 1 Mg/1 Ml Inj) 0.25 mg SUB-Q ONCE PRN PRN Reason: Hyperstimulation/Hypertonicity Review of Systems All systems: negative (contractions) - Vital Signs Vital signs: Vital Signs Pulse BP 93 H 132/59 12/14/20 17:45 12/14/20 17:45 Temp Pulse Resp BP Pulse Ox 98.5 F 93 H 16 132/59 12/14/20 17:58 12/14/20 17:45 12/14/20 17:58 12/14/20 17:45 - Physical Exam Abdomen: Positive: soft. Negative: distention, tenderness, guarding, rigidity Genitourinary (Female): Positive: normal external genitalia, normal perenium. Negative: perineal/vulvar lesions Vagina: Positive: normal moisture Uterus: Positive: enlarged. Negative: tender Anus/Rectum: Positive: normal perianal skin Extremities: Negative: tenderness - Obstetrical FHR: category 1 Uterine Contraction Monitor Mode: External Cervical Dilatation: 6 Cervical Effacement Percentage: 50 (Presenting part ballottable) station: B Uterine Contraction Pattern: Irregular Uterine Contraction Intensity: Mild Results All other labs normal. Assessment and Plan A: at 38 weeks, 2 days gestation. Labor. GBS positive. Class 3 obesity. P: Admit. Continuous EFM. US to confirm presentation (presenting part high and ballottable). GBS prophylaxis. Anesthesia to see patient due to morbid obesity (notified).
--- NOTE | 2020-12-14 18:53 | Ultrasound Report ---
US OB limited INDICATION / CLINICAL INFORMATION: presentation. COMPARISON: 10/18/2020 FINDINGS: lie is cephalic heart rate is 137. IMPRESSION: 1. lie is cephalic. Signer Name: Rebel Melgoza MD Signed: 12/14/2020 6:48 PM Workstation Name: [id number]
[2020-12-14 19:37] LABS: Hematocrit 34.4 % (30.3-42.9); Hemoglobin 10.8 gm/dl (10.1-14.3); Mean Corpuscular HGB Conc 32 % (30-34); Mean Corpuscular Volume 79 fl (79-97); Platelet Count 219 K/mm3 (140-440); Red Blood Count 4.37 M/mm3 (3.65-5.03); Red Cell Distribution Width 15.3 % (13.2-15.2)
[2020-12-14] MEDS: fentaNYL 100 MCG/2 ML INJ IV PRN (19:52)
[2020-12-14] MEDS ORDERED: miSOPROStol 200 MCG TAB PR PRN (20:00)
[2020-12-14] MEDS ORDERED: AMPICILLIN/NS 2 GM/100 ML 2 GM/100 ML BAG IV ONE (20:00)
[2020-12-14] MEDS ORDERED: OXYTOCIN DRIP 30 UNITS/500 ML BAG IV SCH (20:00)
[2020-12-14] MEDS ORDERED: LIDOCAINE (2%) 20 MG/1 ML VIAL 20 ML MDV INFILTRATI ONE (20:00)
[2020-12-14] MEDS ORDERED: METHYLERGONOVINE MALEATE 0.2 MG/ML VIAL IM PRN (20:00)
[2020-12-14] MEDS ORDERED: LACTATED RINGERS 1,000 ML IV SCH (20:00)
[2020-12-14] MEDS ORDERED: CARBOPROST TROMETHAMINE 250 MCG/1 ML INJ IM PRN (20:00)
[2020-12-14] MEDS ORDERED: ACETAMINOPHEN 325 MG TAB PO PRN (20:00)
[2020-12-14] MEDS ORDERED: ePHEDrine SULFATE 50 MG/1 ML INJ IV PRN (20:00)
[2020-12-14] MEDS ORDERED: OXYTOCIN 10 UNIT/1 ML INJ IM PRN (20:00)
[2020-12-14] MEDS ORDERED: BUTORPHANOL 2 MG/1 ML INJ IV PRN (20:00)
[2020-12-14] MEDS ORDERED: TERBUTALINE 1 MG/1 ML INJ SUB-Q PRN (20:00)
[2020-12-14] MEDS ORDERED: LOPERAMIDE 2 MG CAP PO PRN (20:00)
[2020-12-14] MEDS ORDERED: fentaNYL 100 MCG/2 ML INJ IV PRN (20:00)
[2020-12-14] MEDS ORDERED: fentaNYL 100 MCG/2 ML INJ IV SCH (20:00)
[2020-12-15] MEDS: fentaNYL 100 MCG/2 ML INJ IV PRN (00:03)
[2020-12-15 01:25] LABS: Alanine Aminotransferase 7 units/L (7-56); Albumin 3.2 g/dL (3.9-5); Blood Urea Nitrogen 7 mg/dL (7-17); Calcium 8.3 mg/dL (8.4-10.2); Hemolysis Index 3
[2020-12-15 01:40] LABS: BUN/Creatinine Ratio 18
[2020-12-15] MEDS: AMPICILLIN/NS 1 GM/50 ML 1 GM/50 ML BAG IV SCH ×2 (02:03→07:09)
[2020-12-15] MEDS ORDERED: BUTORPHANOL 2 MG/1 ML INJ IV PRN (03:33)
[2020-12-15] MEDS ORDERED: NALOXONE 2 MG/2 ML INJ IV PRN (05:55)
[2020-12-15] MEDS ORDERED: ePHEDrine SULFATE 50 MG/1 ML INJ IV PRN (05:55)
[2020-12-15] MEDS ORDERED: fentaNYL-BUPIV 2 MCG/ML-0.125% 200 MCG/100 ML BAG EPIDURAL SCH (06:00)
--- NOTE | 2020-12-15 06:04 | Anesthesia Consultation ---
Anesthesia Consult and Med Hx Date of service: 12/15/20 - Airway Anesthetic Teeth Evaluation: Good ROM Head & Neck: Adequate Mental/Hyoid Distance: Adequate Mallampati Class: Class II Intubation Access Assessment: Good - Pulmonary Exam CTA: Yes - Cardiac Exam Cardiac Exam: RRR - Pre-Operative Health Status ASA Pre-Surgery Classification: ASA3 Proposed Anesthetic Plan: Epidural - Pulmonary Hx Smoking: No Hx Asthma: No Hx Respiratory Symptoms: No SOB: No COPD: No Home Oxygen Therapy: No Hx Pneumonia: No Hx Sleep Apnea: No - Cardiovascular System Hx Hypertension: No Hx Coronary Artery Disease: No Hx Heart Attack/AMI: No Hx Angina: No Hx Percutaneous Transluminal Coronary Angioplasty (PTCA): No Hx Cardia Arrhythmia: No Hx Pacemaker: No Hx Internal Defibrillator: No Hx Valvular Heart Disease: No Hx Heart Murmur: No Hx Peripheral Vascular Disease: No - Central Nervous System Hx Neuromuscular Disorder: No Hx Seizures: No CVA: No Hx Back Pain: Yes Hx Psychiatric Problems: No - Gastrointestinal Hx Ulcer: No Hx Gastroesophageal Reflux Disease: Yes - Endocrine Hx Renal Disease: No Hx End Stage Renal Disease: No Hx Cirrhosis: No Hx Liver Disease: No Hx Insulin Dependent Diabetes: No Hx Non-Insulin Dependent Diabetes: No Hx Thyroid Disease: No Hx Hypothyroidism: No Hx Hyperthyroidism: No - Hematic Hx Anemia: No Hx Sickle Cell Disease: No - Other Systems Hx Alcohol Use: No Hx Substance Use: No Hx Cancer: No Hx Obesity: Yes
--- NOTE | 2020-12-15 06:49 | Progress Note ---
Labor Epidural - Labor Epidural Start Time: 06:14 Stop Time: 06:35 Performed by:: BILL GUTHRIE Procedure: Patient is requesting a laboring epidural for laboring pain. Patient IDed, H&P reviewed, all questions and concerns were answered, and consent was signed. Timeout was performed at bedside. Patient in sitting position. Sterile prep and drape was performed. [3] ml of 1% lidocaine skin wheal at L[3]- L [4]. 18- gauge Alfonso epidural needle was advanced to loss of resistance with saline technique 8cm. Negative CSF negative blood. Epidural catheter advanced to [12] centimeters. [NEGATIVE] Aspiration [NEGATIVE] test dose. Sterile dressing applied. Patient tolerated procedure.
[2020-12-15] MEDS: OXYTOCIN DRIP 30 UNITS/500 ML BAG IV SCH ×3 (07:30→09:01)
[2020-12-15] MEDS ORDERED: METOCLOPRAMIDE 10 MG/2 ML INJ ONE (10:53)
[2020-12-15] MEDS ORDERED: BICITRA ORAL LIQD 30ML ONE (10:53)
[2020-12-15] MEDS ORDERED: FAMOTIDINE 20 MG/2 ML INJ IV ONE ×2 (10:54)
[2020-12-15] MEDS ORDERED: ceFAZolin/Water 2 GM/20 ML 0 GM/0 ML SYRINGE IV ONE (10:54)
[2020-12-15] MEDS ORDERED: BICITRA ORAL LIQD 30ML PO ONE (10:54)
[2020-12-15] MEDS ORDERED: METOCLOPRAMIDE 10 MG/2 ML INJ IV ONE (10:54)
--- NOTE | 2020-12-15 10:54 | Progress Note ---
Assessment and Plan A: IUP@ 38.3 wks Morbid obesity GBS pos p: Continue monitoring Anticipate Subjective - Subjective Date of service: 12/15/20 (late entry for 8am) Principal diagnosis: IUP@ 38. 3 WKS Patient reports: movement normal Objective - Vital Signs Vital Signs: Vital Signs - 12hr 12/15/20 12/15/20 12/15/20 00:00 01:57 04:17 Temperature 98.7 F 97.5 F L Pulse Rate 87 Respiratory 17 16 Rate Blood Pressure 131/63 Blood Pressure [Left] O2 Sat by Pulse Oximetry O2 Sat by Pulse Oximetry [ Bilateral] 12/15/20 12/15/20 12/15/20 04:47 06:12 06:13 Temperature 98.4 F Pulse Rate 93 H 93 H Respiratory 18 Rate Blood Pressure 132/60 117/67 Blood Pressure [Left] O2 Sat by Pulse Oximetry O2 Sat by Pulse Oximetry [ Bilateral] 12/15/20 12/15/20 12/15/20 06:17 06:18 06:34 Temperature Pulse Rate 104 H 106 H 99 H Respiratory Rate Blood Pressure 115/62 Blood Pressure [Left] O2 Sat by Pulse 100 84 Oximetry O2 Sat by Pulse Oximetry [ Bilateral] 12/15/20 12/15/20 12/15/20 06:36 06:38 06:40 Temperature Pulse Rate 100 H 98 H 93 H Respiratory Rate Blood Pressure 127/59 116/63 120/66 Blood Pressure [Left] O2 Sat by Pulse Oximetry O2 Sat by Pulse Oximetry [ Bilateral] 12/15/20 12/15/20 12/15/20 07:13 07:27 07:29 Temperature 97.8 F Pulse Rate 93 H 89 87 Respiratory 18 Rate Blood Pressure 126/58 120/56 Blood Pressure 118/59 [Left] O2 Sat by Pulse Oximetry O2 Sat by Pulse 98 Oximetry [ Bilateral] 12/15/20 12/15/20 07:30 07:43 Temperature Pulse Rate 90 85 Respiratory Rate Blood Pressure 118/59 119/68 Blood Pressure [Left] O2 Sat by Pulse Oximetry O2 Sat by Pulse Oximetry [ Bilateral] - Exam Breasts: normal Abdomen: Present: normal appearance, soft, normal bowel sounds Vulva: both: normal Uterus: Present: normal FHR: category 1 Uterine Contraction Monitor Mode: External Cervical Dilatation: 7 Cervical Effacement Percentage: 100 station: -3 Uterine Contraction Frequency (min): irreg Uterine Contraction Pattern: Irregular Uterine Tone Measurement Phase: Resting Uterine Contraction Intensity: Strong/Firm Extremities: normal - Labs Labs: Abnormal Labs 12/14/20 12/15/20 18:40 00:46 WBC 16.9 H MCH 25 L RDW 15.3 H Sodium 136 L Creatinine 0.4 L Calcium 8.3 L Alkaline Phosphatase 161 H Albumin 3.2 L Laboratory Results - last 24 hr 12/14/20 12/14/20 12/14/20 18:40 18:40 20:15 WBC 16.9 H RBC 4.37 Hgb 10.8 Hct 34.4 MCV 79 MCH 25 L MCHC 32 RDW 15.3 H Plt Count 219 Sodium Potassium Chloride Carbon Dioxide Anion Gap BUN Creatinine Estimated GFR BUN/Creatinine Ratio Glucose Calcium Total Bilirubin AST ALT Alkaline Phosphatase Total Protein Albumin Albumin/Globulin Ratio Syphilis IgG Antibody Nonreactive Blood Type A POSITIVE Antibody Screen Negative 12/15/20 00:46 WBC RBC Hgb Hct MCV MCH MCHC RDW Plt Count Sodium 136 L Potassium 3.8 Chloride 103.0 Carbon Dioxide 23 Anion Gap 14 BUN 7 Creatinine 0.4 L Estimated GFR > 60 BUN/Creatinine Ratio 18 Glucose 83 Calcium 8.3 L Total Bilirubin 0.30 AST 9 ALT 7 Alkaline Phosphatase 161 H Total Protein 6.8 Albumin 3.2 L Albumin/Globulin Ratio 0.9 Syphilis IgG Antibody Blood Type Antibody Screen
[2020-12-15] MEDS ORDERED: ONDANSETRON 4 MG/2 ML INJ ONE ×2 (10:57)
[2020-12-15] MEDS ORDERED: LIDOCAINE 2%/EPINEPHRINE 1:200,000 VIAL (20 ML) INFILTRATI ONE (10:57)
[2020-12-15] MEDS ORDERED: HYDROmorphone 1 MG/1 ML INJ IV PRN ×2 (11:00→12:00)
--- NOTE | 2020-12-15 11:05 | Anesthesia Day of Surgery ---
Anesthesia Day of Surgery - Day of Surgery Patient Examined: Yes Patient H&P Reviewed: Yes Patient is NPO: Yes Beta Blockers: No Cardiac Clearance: No Pulmonary Clearance: No Hbarath's Test: Negative
--- NOTE | 2020-12-15 11:06 | Event Note ---
Date: 12/15/20 Called to pt's rm re FHT. FHR 82 per IFM with mod nina. SVE -2. Resuscitative measures were initiated. Dr Guevara was notified. FHT up to 124 after several min then back down again to 70. Resuscitative measures resumed. Dr Guevara in route. A c/s was discussed with pt and her partner and pt was prepared for one.
[2020-12-15] MEDS ORDERED: NALOXONE 0.4 MG/1 ML INJ IV PRN ×2 (11:30→13:30)
[2020-12-15] MEDS ORDERED: SODIUM CHLORIDE 0.9% IRR 1,500 ML BOTTLE IR ONE (11:50)
[2020-12-15] MEDS ORDERED: WATER FOR IRRIG STERILE 1,500 ML BOTTLE IR ONE (11:50)
[2020-12-15] MEDS ORDERED: ONDANSETRON 4 MG/2 ML INJ IV PRN ×2 (12:00→13:30)
[2020-12-15] MEDS ORDERED: KETOROLAC 30 MG/1 ML INJ ONE (12:10)
[2020-12-15] MEDS ORDERED: BUPIVACAINE/PF (0.25%) 2.5 MG/ML 30 ML VIAL INFILTRATI ONE ×2 (12:19)
[2020-12-15] MEDS ORDERED: dexAMETHasone 20 MG/5 ML VIAL ONE (13:12)
--- NOTE | 2020-12-15 13:15 | Procedure Note ---
Date of procedure: 12/15/20 Pre-op diagnosis: term , labor, non-reassurring fhts Post-op diagnosis: other (cord around shoulder) Procedure: This is Dr. Mon dictating operative report on the patient. The patient had a liveborn female weighing 7 pounds 7 ounces with Apgars 8 and 9 estimated blood loss 500 cc fluids IV 850 cc urine 50 cc. Preoperative diagnosis was term labor nonreassuring heart tones. Postoperative diagnosis same and cord around the shoulder. Amniotic fluid was clear. Anesthesia was epidural. Fluids IV. Drains Gonzalez. Estimated blood loss 500 cc. Complications none. Findings liveborn female . Procedure patient was taken to the operatory placed in supine position with an epidural anesthetic she already had an indwelling Gonzalez catheter we then prepped and draped in usual fashion. We created a Pfannenstiel incision and into the abdominal cavity anatomically vesicouterine peritoneum was opened transversely with Metzenbaums laterally bluntly and sharply dissected off the lower uterine segment a bladder blade was placed in the lower pole of the incision a low transverse uterine section scar was made with a scalpel and fetus in occiput anterior presentation was then delivered without incident oropharyngeal static suction nasopharynx was suctioned. Subsequently the cord was doubly clamped and cut fetus passed off the table to the nurses in attendance from the nursery. The placenta was then delivered manually uterus and delivered extra-abdominal uterine incision was cleaned of debris membranes and tissue uterine cavity was cleaned of debris membranes and tissue uterine incision was repaired in 2 layers first layer was in a deep manage using running locking #0 chromic. The superficial myometrium was closed with running locking #0 Vicryl. Uterine incision was hemostatic. Vesicouterine peritoneum was repaired running 2-0 chromic. Tubes and ovaries appeared to be normal. See no further procedures were indicated the uterus was brought back to abdominal cavity we did clean the gutters of debris membranes and tissue blood posterior cul-de-sac was also suctioned out of blood. All instruments removed from abdominal cavity instrument count needle lap sponge count was correct. Anterior abdominal peritoneum was repaired running 2-0 chromic. Fascia was repaired running nonlocking with 0 Vicryl in. Subcutaneous panniculus was closed with running 2-0 chromic. Skin was closed with a running subcuticular 4- 0 Vicryl on a Jef needle and drained with Dermabond the patient tolerated procedure well she was then returned to recovery room in stable condition end of operative note on this patient. Anesthesia: epidural Surgeon: CYRIL MON Estimated blood loss: other (500 ccs) IV fluids: 850 Urine output: 50 Pathology: none Specimen disposition: discarded Condition: stable Disposition: PACU
[2020-12-15] MEDS ORDERED: WITCH HAZEL/ GLYCERIN PAD TP PRN (13:30)
[2020-12-15] MEDS ORDERED: SIMETHICONE 80 MG CHEW TAB PO PRN (13:30)
[2020-12-15] MEDS ORDERED: KETOROLAC 30 MG/1 ML INJ IV PRN (13:30)
[2020-12-15] MEDS ORDERED: LANOLIN/ZINC/DIMETHICONE (LANSINOH) 7 GM TP PRN (13:30)
[2020-12-15] MEDS ORDERED: OXYTOCIN DRIP 30 UNITS/500 ML BAG IV SCH (14:00)
[2020-12-15] MEDS: MORPHINE 4 MG/1 ML INJ IV PRN ×2 (16:26→23:57)
[2020-12-15 18:13] LABS: Bacteria,Urine 1+ /HPF (Negative); Bilirubin,Urine NEG (Negative); Blood,Urine SM (Negative); Color,Urine Yellow (Yellow); Protein,Urine <15 mg/dL mg/dL (Negative)
[2020-12-15] MEDS ORDERED: MAGNESIUM HYDROXIDE (MOM) ORAL LIQD UDC PO PRN (23:54)
[2020-12-16] MEDS: oxyCODONE /ACETAMINOPHEN 5-325MG TAB PO PRN ×3 (03:23→17:04)
[2020-12-16 06:12] LABS: Hematocrit 31.9 % (30.3-42.9); Hemoglobin 10.3 gm/dl (10.1-14.3)
[2020-12-16] MEDS: IBUPROFEN 600 MG TAB PO PRN ×2 (06:16→19:54)
--- NOTE | 2020-12-16 10:39 | Progress Note ---
Assessment and Plan POD # 1 A: S/P Primary LTCS UTI P: Continue routine pp orders Macrobid and c&s ordered Encourage [facility]ulation [facility] if stable Subjective - Subjective Date of service: 12/16/20 Principal diagnosis: s/p primary LTCS Patient reports: appetite normal, voiding normally, pain well controlled, flatus, ambulating normally [place]: doing well, bottle feeding Objective - Vital Signs Latest vital signs: Vital Signs Temp Pulse Resp BP BP Pulse Ox Pulse Ox 12/16/20 09:13 16 12/16/20 08:41 98.1 F 90 18 100/56 96 12/16/20 06:16 18 12/16/20 04:56 98.2 F 84 20 102/55 97 12/16/20 03:23 20 12/16/20 00:47 98.5 F 71 20 107/73 97 12/15/20 23:57 20 12/15/20 20:19 98.3 F 74 20 128/66 98 12/15/20 19:30 100 12/15/20 15:00 97.6 F 72 16 105/54 99 99 12/15/20 14:20 71 16 90/61 100 12/15/20 14:00 97.5 F L 82 15 103/58 100 12/15/20 13:50 68 15 100/53 100 12/15/20 13:35 68 16 107/40 100 12/15/20 13:20 76 18 107/59 100 12/15/20 13:15 71 18 97/68 100 12/15/20 13:10 97.5 F L 79 18 107/66 100 Intake and Output 12/15/20 12/16/20 12/16/20 22:59 06:59 14:59 Intake Total 700 480 Output Total 1500 Balance 700 -1020 Intake: Oral 460 240 Intake, Free Water 240 240 Output: Urine 1500 Indwelling Catheter 900 Void 600 Other: Total, Intake Amount 460 240 Total, Output Amount 500 # Voids Void 1 - Exam Breasts: Present: normal Abdomen: Present: normal appearance, soft, normal bowel sounds Vulva: both: normal Uterus: Present: normal, firm, fundal height below umbilicus Extremities: Present: normal Incision: Present: normal, dry, intact - Labs Labs: Abnormal lab results 12/15/20 Range/Units 17:39 Urine WBC (Auto) 17.0 H (0.0-6.0) /HPF
[2020-12-16] MEDS: NITROFURANTOIN MONOHYD/M-CRYST 100 MG CAP PO SCH ×2 (12:35→21:44)
--- NOTE | 2020-12-16 13:35 | Post Anesthesia Evaluation ---
- Post Anesthesia Evaluation Patient Participated: Yes Airway Patent: Yes Stable Respiratory Function: Yes Nausea/Vomiting: No Temp > 96.8F: Yes Pain Manageable: Yes Adequeate Hydration: Yes Anesthesia Complications: No Block Receding Appropriately: Yes Patient on Ventilator: No
[2020-12-17] MEDS: oxyCODONE /ACETAMINOPHEN 5-325MG TAB PO PRN ×4 (00:27→21:37)
[2020-12-17] MEDS: IBUPROFEN 600 MG TAB PO PRN ×2 (05:50→17:07)
[2020-12-17] MEDS: NITROFURANTOIN MONOHYD/M-CRYST 100 MG CAP PO SCH ×2 (09:34→21:37)
--- NOTE | 2020-12-17 10:43 | Progress Note ---
Assessment and Plan POD # 2 A: S/P primary LTCS UTI PP depression p: Continue routine pp care Continue po abt SS consult Awaiting urine c&s D/C home tomm if stable Subjective - Subjective Date of service: 12/17/20 Principal diagnosis: s/p primary LTCS Patient reports: appetite normal, voiding normally, pain well controlled, flatus, ambulating normally, other (pt was crying and stating she's feeling sad about having a c/s. She notes a hx of pp depression. She denies suicidal or homicidal ideations. ) [place]: doing well, nursing well Objective - Vital Signs Latest vital signs: Vital Signs Temp Pulse Resp BP BP Pulse Ox Pulse Ox 12/17/20 08:15 97.8 F 79 20 107/53 12/17/20 08:00 98 12/17/20 06:50 18 12/17/20 05:50 18 12/17/20 01:27 18 12/17/20 00:27 18 12/16/20 23:16 98.1 F 87 20 102/62 97 12/16/20 20:54 18 12/16/20 20:00 100 12/16/20 19:54 18 12/16/20 17:30 98.2 F 89 18 123/65 97 12/16/20 17:04 16 12/16/20 12:32 98.2 F 85 18 107/44 97 Intake and Output 12/16/20 12/17/20 12/17/20 22:59 06:59 14:59 Intake Total 120 720 120 Balance 120 720 120 Intake: Oral 360 120 Intake, Free Water 120 360 Other: Total, Intake Amount 360 120 # Voids Void 1 1 - Exam Breasts: Present: normal Abdomen: Present: normal appearance, soft, normal bowel sounds Vulva: both: normal Uterus: Present: normal, firm Extremities: Present: normal Incision: Present: normal, dry, intact
[2020-12-18] MEDS: oxyCODONE /ACETAMINOPHEN 5-325MG TAB PO PRN ×2 (04:12→10:03)
[2020-12-18] MEDS: IBUPROFEN 600 MG TAB PO PRN (06:14)
--- NOTE | 2020-12-18 09:01 | Discharge Summary ---
Providers - Providers Date of Admission: 12/14/20 17:54 Date of discharge: 12/18/20 Attending physician: ANI MARROQUIN MD 12/17/20 10:45 psychiatry consult [Consult to Mental Health] [CONS] Routine Reason For Exam: pp sadness r/t primary LTCS. Pt has a hx of pp dep Primary care physician: ANI MARROQUIN MD Hospitalization Reason for admission: active labor, IUP at term Delivery: Procedure: primary low transverse Episiotomy: none Laceration: none Incision: normal, dry, intact Other procedures: none complications: none Discharge diagnosis: IUP at term delivered [place] baby: female Hospital course: Pt was admitted to [facility] in active labor. She had a primary LTCS r/t NRFHT. She dev a uti pp which was treated with Macrobid. Pt was seen by psych for hx of pp depression. See H&P, delivery summary, and pp notes. Condition at discharge: Stable Disposition: DC- TO HOME OR SELFCARE Plan - Discharge Medications Prescriptions: Ibuprofen [Motrin 600 MG tab] 600 mg PO Q6H PRN #30 tablet PRN Reason: Pain, Mild (1-3) - Provider Discharge Summary Activity: routine, no sex for 6 weeks, no heavy lifting 4 weeks, no strenuous exercise Diet: routine Instructions: routine Additional instructions: [] Smoking cessation referral if applicable(refer to patient education folder for contact #) [] Refer to [facility] Booklet Call your doctor immediately for: * Fever > 100.5 * Heavy vaginal bleeding ( >1 pad per hour) * Severe persistent headache * Shortness of breath * Reddened, hot, painful area to leg or breast * Drainage or odor from incision. * Keep incision clean and dry at all times and follow doctor's instructions regarding bathing/showering - Follow up plan Follow up: ANI MARROQUIN MD [Primary Care Provider] - 14 Days
[2020-12-18] MEDS: NITROFURANTOIN MONOHYD/M-CRYST 100 MG CAP PO SCH (10:03)
--- NOTE | 2020-12-18 10:55 | Consultation ---
History of Present Illness - Reason for Consult Consult date: 12/18/20 Reason for consult: post- depression - History of Present Psychiatric Illness The patient was seen today. She was admitted for childbirth. The patient is calm and cooperative. She is pleasant and polite. She is holding her . The patient says she has a history of PPD. She says she thinks the trauma of the c- section brought her emotions down. 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 She denies hallucinations of any kind. She states at one point she was on medications for depression but stopped taking it. She didn't like the way it made her feel. I discussed starting regular therapy with the patient and zoloft. She was in understanding and agreement with the plan. Diagnoses: PPD Suicide attempts or Self-harm behavior: Denies Prior psychiatric hospitalizations: Denies Substance Abuse history: Denies Previous psychiatric medications tried: antidepressant Outpatient treatment: Denies PAST MEDICAL HISTORY: None reported Family Psychiatric History: None reported or documented SOCIAL HISTORY Marital Status: single Living Arrangements: with children Employment Status: self employed Access to guns/weapons: Denies Education: high school diploma History of Abuse: none reported Legal History: none reported REVIEW OF SYSTEMS Constitutional: Negative for weight loss ENT: Negative for stridor Respiratory: Negative for cough or hemoptysis All other systems reviewed and are negative MENTAL STATUS EXAMINATION General Appearance and Behavior: Age appropriate, good hygiene, wearing appropriate clothes, awake, calm and cooperative, pleasant Cooperation: Participating/engaged Psychomotor Behavior: normal Mood: okay Affect and affective range: congruent with mood Thought Process: goal directed Thought Content: none Speech: normal tone and pace Suicidal Ideation: Denies Homicidal Ideation: Denies Hallucinations: denies Delusions: None elicited Impulse Control: normal Insight and Judgment: normal insight and judgment, Memory: normal Attention: Normal Orientation: Alert, oriented Assessment and Plan (1)Hx of post depression Current Visit: Yes Status: Acute Treatment Plan zoloft 25mg po daily establish outpatient psychiatrist contract designer to give outpatient resources Patient to follow up with outpatient psych in 7 to 14 days Disposition: do not recommend inpatient psychiatric treatment will sign off. Thanks Case staffed with Dr. Harry Medications and Allergies Allergies Allergy/AdvReac Type Severity Reaction Status Date / Time No Known Allergies Allergy Verified 09/14/20 22:06 Home Medications Medication Instructions Recorded Confirmed Last Taken Type Vitamin 1 tab PO DAILY 01/17/19 12/14/20 12/13/20 09:00 History Ibuprofen [Motrin 600 MG tab] 600 mg PO Q6H PRN #30 tablet 12/18/20 Unknown Rx Active Meds: Active Medications Carboprost Tromethamine (Carboprost Tromethamine 250 Mcg/1 Ml Inj) 250 mcg IM ONCE PRN PRN Reason: Uterine Bleeding Ephedrine Sulfate (Ephedrine Sulfate 50 Mg/1 Ml Inj) 10 mg IV Q2M PRN PRN Reason: Hypotension Hydromorphone HCl (Hydromorphone 1 Mg/1 Ml Inj) 0.5 mg IV Q4H PRN PRN Reason: breakthrough pain > 7/10 Lactated Ringer's (Lactated Ringers) 1,000 mls @ 125 mls/hr IV DIRECT PEDRO LUIS Last Admin: 12/15/20 08:32 Dose: 125 mls/hr Documented by: Fentanyl/Bupivacaine/Sodium Chlor (Fentanyl-Bupiv 2 Mcg/Ml-0.125%) 200 mcg in 100 mls @ 12 mls/hr EPIDURAL TITR PEDRO LUIS; Protocol Last Admin: 12/15/20 07:08 Dose: 12 mls/hr Documented by: Oxytocin/Sodium Chloride (Pitocin/Ns 30 Unit/500ml) 30 units in 500 mls @ 40 mls/hr IV TITR PEDRO LUIS; Protocol Ibuprofen (Ibuprofen 600 Mg Tab) 600 mg PO Q6H PRN PRN Reason: Pain, Mild (1-3) Last Admin: 12/18/20 06:14 Dose: 600 mg Documented by: Ketorolac Tromethamine (Ketorolac 30 Mg/1 Ml Inj) 30 mg IV Q6H PRN PRN Reason: Pain, Moderate (4-6) Stop: 12/20/20 13:29 Last Admin: 12/15/20 20:19 Dose: 30 mg Documented by: Loperamide HCl (Loperamide 2 Mg Cap) 2 mg PO ONCE PRN PRN Reason: give with Hemabate Magnesium Hydroxide (Magnesium Hydroxide (Mom) Oral Liqd Udc) 30 ml PO HS PRN PRN Reason: Constipation Last Admin: 12/16/20 00:09 Dose: 30 ml Documented by: Methylergonovine Maleate (Methylergonovine Maleate 0.2 Mg/Ml Vial) 0.2 mg IM ONCE PRN PRN Reason: Uterine Bleeding Misoprostol (Misoprostol 200 Mcg Tab) 800 mcg ID ONCE PRN PRN Reason: Uterine Bleeding Morphine Sulfate (Morphine 4 Mg/1 Ml Inj) 4 mg IV Q4H PRN PRN Reason: Pain , Severe (7-10) Last Admin: 12/15/20 23:57 Dose: 4 mg Documented by: Multi-Ingredient Ointment (Lanolin/Zinc/Dimethicone (Lansinoh) 7 Gm) 1 applic TP PRN PRN PRN Reason: dryness/cracking Naloxone HCl (Naloxone 2 Mg/2 Ml Inj) 0.2 mg IV Q5M PRN PRN Reason: Respiratory sedation Naloxone HCl (Naloxone 0.4 Mg/1 Ml Inj) 0.1 mg IV Q2MIN PRN PRN Reason: Res Rate </= 8 or 02 SAT < 92% Nitrofurantoin Macrocrystals (Nitrofurantoin Monohyd/M-Cryst 100 Mg Cap) 100 mg PO Q12HR PEDRO LUIS Last Admin: 12/18/20 10:03 Dose: 100 mg Documented by: Ondansetron HCl (Ondansetron 4 Mg/2 Ml Inj) 4 mg IV Q8H PRN PRN Reason: Nausea And Vomiting Oxycodone/Acetaminophen (Oxycodone /Acetaminophen 5-325mg Tab) 2 tab PO Q4H PRN PRN Reason: Pain, Moderate (4-6) Last Admin: 12/18/20 10:03 Dose: 2 tab Documented by: Oxytocin (Oxytocin 10 Unit/1 Ml Inj) 10 unit IM ONCE PRN PRN Reason: Uterine Bleeding Simethicone (Simethicone 80 Mg Chew Tab) 80 mg PO Q6H PRN PRN Reason: Gas pain Sodium Chloride (Sodium Chloride 0.9% 10 Ml Flush Syringe) 10 ml IV PRN PRN PRN Reason: flush Witch Shanon/Glycerin (Witch Shanon/ Glycerin Pad) 1 each TP PRN PRN PRN Reason: Hemorrhoids/cleansing/soothing Mental Status Exam - Vital signs Last Vital Signs Temp 98.5 F 08/05/21 08:27 Pulse 95 H 12/18/20 08:27 Resp 18 12/18/20 08:27 BP 126/59 12/18/20 08:27 Pulse Ox 99 12/18/20 09:30 Results Result Diagrams: 12/16/20 04:15 12/15/20 00:46 All other labs normal.
[2020-12-18 16:41] VITALS: BP 91/61
== END 2020-12-18 16:25 | disposition home or self-care (01) | DRG 765 ==
LOC: TRG 17:02 → APU 17:06 → TRG 17:54 → LD 17:54 → OB 12-15 15:55
PROVIDERS: ADMIT Obstetrics & Gynecology; ATTEND Obstetrics & Gynecology
PROC: 10D00Z1 Extraction of Products of Conception, Low, Open Approach (ICD-10-PCS; principal; 2020-12-15)
DX: O76 Abnormality in fetal heart rate and rhythm complicating labor and delivery (principal); O75.3 Other infection during labor; Z20.822 Contact with and (suspected) exposure to COVID-19; O99.344 Other mental disorders complicating childbirth; F32.9 Major depressive disorder, single episode, unspecified; O99.824 Streptococcus B carrier state complicating childbirth; O99.214 Obesity complicating childbirth; E66.01 Morbid (severe) obesity due to excess calories; O99.62 Diseases of the digestive system complicating childbirth; K21.9 Gastro-esophageal reflux disease without esophagitis; Z37.0 Single live birth; Z79.899 Other long term (current) drug therapy; Z3A.38 38 weeks gestation of pregnancy
CPT/HCPCS: 36415; 59025; 76815; 80053; 81001; 85014; 85018; 85027; 86592; 86850; 86900; 86901; 87086; 99211; G0378; G0463; J0290; J0595; J1100; J1885; J2270; J2405; J2590; J3010; J7120; U0003